=== PATIENT | male | born 1940 | race Caucasian/White ===

== ENCOUNTER 2020-02-01 15:18 | Outpatient (CLI) | payer MEDICARE, SELFPAY ==
[2020-02-03 10:58] LABS: PSA, Ultrasensitive 0.24 ng/mL (<= 6.5)
[2020-02-04 14:09] LABS: Testosterone, Total 607 ng/dL (240-950)
== END 2020-02-01 15:38 ==
PROVIDERS: PCP Family Medicine; Visit Provider Internal Medicine
DX: C61 Malignant neoplasm of prostate (principal); C79.51 Secondary malignant neoplasm of bone
CPT/HCPCS: 36415; 84153; 84403